=== PATIENT | male | born 1990 | race Two or more races ===

== ENCOUNTER 2016-06-10 20:48 | Emergency (ER) | payer OTHER ==
[~2016-06-10] VITALS: Ht 165.1 cm; Wt 78.0 kg
[~2016-06-10 20:48] MED LIST: ADDERALL; ANTIVERT25 MG PO; BACTRIM,SEPT1 TABLET PO; CLINDAMYCIN HC300 MG PO; CONCERTA18 MG PO; HYDROCODON-ACE1 EAC7 PO; KEFLEX500 MG PO; MOTRIN600 MG PO; MOTRIN800 MG PO; NAPROSYN500 MG PO; NAPROXEN500 M1 PO; NOHOMEMEDS; PERCOCET 5/31 TABLET PO; ROMYCIN3.5 GM RIGHT EYE; TORADOL10 MG PO; TRAMADOL HCL50 MG PO; VALIUM5 MG PO; ZOFRAN4 MG PO
[2016-06-10] MEDS ORDERED: BENADRYL50 MG PO (23:05)
[2016-06-10] MEDS ORDERED: PREDNISONE20 MG PO (23:05)
[2016-06-10] MEDS ORDERED: PEPCID20 MG PO (23:05)
[2016-06-11 00:01] VITALS: BP 127/60
== END 2016-06-11 00:04 | disposition home or self-care (01) ==
LOC: EME 20:48
DX: T78.40XA Allergy, unspecified, initial encounter (principal); F17.210 Nicotine dependence, cigarettes, uncomplicated
CPT/HCPCS: 99281; 99284; J7512

== ENCOUNTER 2016-12-15 00:53 | Emergency (ER) | payer OTHER ==
[~2016-12-15] VITALS: Ht 165.1 cm; Wt 79.3 kg
[~2016-12-15 00:53] MED LIST changes: +BENADRYL50 MG PO; +PEPCID20 MG PO; +PREDNISONE20 MG PO
[2016-12-15 01:49] LABS: MCHC 35.6 G/DL (30.0-36.0); MEAN PLAT.VOLUME 9.8 uM^3 (9.0-12.4); PLATELET COUNT 272 K/uL (156-360); RBC DIS.WIDTH-CV 11.7 % (11.8-14.6); RBC DIS.WIDTH-SD 37.8 % (39-53); RED BLOOD COUNT 4.71 M/uL (4.00-5.50); WHITE BLOOD COUNT 5.5 K/uL (4.1-10.2)
[2016-12-15 01:59] LABS: CHLORIDE 106 mEq/L (99-109); POTASSIUM 3.9 mEq/L (3.7-5.4); SODIUM 140 mEq/L (136-147)
[2016-12-15 02:01] LABS: GLUCOSE 104 mg/dL (70-99)
[2016-12-15 02:02] LABS: ANION GAP 7 MEQ/L (2-14)
[2016-12-15 02:03] LABS: TOTAL BILIRUBIN 0.3 mg/dL (0.0-1.0)
[2016-12-15 02:05] LABS: ALKALINE PHOSPHATASE 48 IU/L (3-129); GFR ESTIMATE (CALCULATED) > 59 mL/min/
[2016-12-15 02:06] LABS: UREA NITROGEN (BUN) 10 mg/dL (9-23)
[2016-12-15] MEDS ORDERED: PEPCID20 MG PO (02:16)
[2016-12-15] MEDS ORDERED: ZOFRAN4 MG PO (02:16)
[2016-12-15 02:34] VITALS: BP 111/68
== END 2016-12-15 02:35 | disposition home or self-care (01) ==
LOC: EME 00:53
PROVIDERS: Physician Assistant
DX: K92.2 Gastrointestinal hemorrhage, unspecified (principal); R11.2 Nausea with vomiting, unspecified; S60.222A Contusion of left hand, initial encounter; W23.0XXA Caught, crushed, jammed, or pinched between moving objects, initial encounter; Y99.0 Civilian activity done for income or pay
CPT/HCPCS: 73130; 80053; 85027; 99281; 99284

== ENCOUNTER 2017-01-28 14:54 | Emergency (ER) | payer OTHER ==
[~2017-01-28] VITALS: Ht 165.1 cm; Wt 78.5 kg
[2017-01-28] MEDS ORDERED: KEFLEX500 MG PO (16:49)
[2017-01-28 17:15] VITALS: BP 132/83
== END 2017-01-28 17:25 | disposition home or self-care (01) ==
LOC: EME 14:54
DX: L03.312 Cellulitis of back [any part except buttock and flank] (principal); F17.200 Nicotine dependence, unspecified, uncomplicated
CPT/HCPCS: 99281; 99283

== ENCOUNTER 2017-03-22 00:50 | Emergency (ER) | payer OTHER ==
[~2017-03-22] VITALS: Ht 165.1 cm; Wt 79.6 kg
[2017-03-22 01:29] LABS: HEMATOCRIT 40.3 % (38.0-50.0); MCHC 35.2 G/DL (30.0-36.0); MEAN PLAT.VOLUME 9.6 uM^3 (9.0-12.4); PLATELET COUNT 270 K/uL (156-360); RBC DIS.WIDTH-CV 11.8 % (11.8-14.6); RED BLOOD COUNT 4.58 M/uL (4.00-5.50); WHITE BLOOD COUNT 6.7 K/uL (4.1-10.2)
[2017-03-22 01:37] LABS: CHLORIDE 107 mEq/L (99-109); POTASSIUM 3.8 mEq/L (3.7-5.4); SODIUM 139 mEq/L (136-147)
[2017-03-22 01:39] LABS: GLUCOSE 126 mg/dL (70-99)
[2017-03-22 01:41] LABS: ANION GAP 7 MEQ/L (2-14); TOTAL BILIRUBIN 0.3 mg/dL (0.0-1.0)
[2017-03-22 01:42] LABS: ADD MIUA? YES; BILIRUBIN NEGATIVE; BLOOD NEGATIVE; COLOR YELLOW ((YELLOW)); GLUCOSE (STRIP) NEGATIVE; KETONES NEGATIVE; LEUKOCYTES NEGATIVE; NITRITE NEGATIVE; PROTEIN (STRIP) NEGATIVE; SPECIFIC GRAVITY 1.024 (1.000-1.030); UROBILINOGEN 0.2 MG/DL (0.2-1.0)
[2017-03-22 01:43] LABS: ALKALINE PHOSPHATASE 40 IU/L (3-129); GFR ESTIMATE (CALCULATED) > 59 mL/min/
[2017-03-22 01:44] LABS: UREA NITROGEN (BUN) 13 mg/dL (9-23)
[2017-03-22 01:46] LABS: LIPASE 33 U/L (1.0-51.0)
[2017-03-22 01:49] LABS: BACTERIA NONE SEEN /HPF; EPITHELIAL CELLS NONE SEEN /HPF; MUCUS TRACE /LPF; UCUL ADDED? NO; WHITE BLOOD CELLS 0-5 /HPF (0-5)
[2017-03-22] MEDS ORDERED: ZOFRAN ODT4 MG PO (02:11)
[2017-03-22 02:15] VITALS: BP 133/80
== END 2017-03-22 02:16 | disposition home or self-care (01) ==
LOC: EME 00:50
PROVIDERS: Physician Assistant
DX: R11.2 Nausea with vomiting, unspecified (principal); S63.91XA Sprain of unspecified part of right wrist and hand, initial encounter; W22.09XA Striking against other stationary object, initial encounter; F17.200 Nicotine dependence, unspecified, uncomplicated
CPT/HCPCS: 73130; 80053; 81003; 83690; 85027

== ENCOUNTER 2017-04-25 10:52 | Emergency (ER) | payer OTHER ==
[~2017-04-25] VITALS: Ht 165.1 cm; Wt 79.2 kg
[~2017-04-25 10:52] MED LIST changes: +ZOFRAN ODT4 MG PO
[2017-04-25 11:05] VITALS: BP 137/84
== END 2017-04-25 12:39 | disposition home or self-care (01) ==
LOC: EME 10:52
PROC: 2W3JX1Z Immobilization of Right Finger using Splint (ICD-10-PCS; principal; 2017-04-25)
DX: S63.612A Unspecified sprain of right middle finger, initial encounter (principal); S60.031A Contusion of right middle finger without damage to nail, initial encounter; W22.09XA Striking against other stationary object, initial encounter
CPT/HCPCS: 73140; 99281; 99284

== ENCOUNTER 2017-06-10 20:15 | Emergency (ER) | payer OTHER ==
[~2017-06-10] VITALS: Ht 165.1 cm; Wt 79.9 kg
[2017-06-11 00:25] VITALS: BP 137/86
== END 2017-06-11 00:38 | disposition home or self-care (01) ==
LOC: EME 20:15
PROC: 3E0T3BZ Introduction of Anesthetic Agent into Peripheral Nerves and Plexi, Percutaneous Approach (ICD-10-PCS; principal; 2017-06-11)
DX: K08.89 Other specified disorders of teeth and supporting structures (principal); Z88.8 Allergy status to other drugs, medicaments and biological substances
CPT/HCPCS: 99281; 99283

== ENCOUNTER 2017-06-17 16:36 | Emergency (ER) | payer OTHER ==
[~2017-06-17] VITALS: Ht 165.1 cm; Wt 79.3 kg
[2017-06-17] MEDS ORDERED: TAMIFLU75 MG PO (18:26)
[2017-06-17 19:03] VITALS: BP 129/77
== END 2017-06-17 19:05 | disposition home or self-care (01) ==
LOC: EME 16:36
PROVIDERS: Physician Assistant
DX: J10.1 Influenza due to other identified influenza virus with other respiratory manifestations (principal); F17.200 Nicotine dependence, unspecified, uncomplicated
CPT/HCPCS: 87502; 99281; 99284

== ENCOUNTER 2017-06-20 17:40 | Emergency (ER) | payer OTHER ==
[~2017-06-20] VITALS: Ht 165.1 cm; Wt 78.0 kg
[~2017-06-20 17:40] MED LIST changes: +TAMIFLU75 MG PO
[2017-06-20] MEDS ORDERED: ERYTHROMYC1 APPLICAT LEFT EYE (21:11)
[2017-06-20 21:22] VITALS: BP 125/67
== END 2017-06-20 21:23 | disposition home or self-care (01) ==
LOC: EME 17:40
DX: H10.9 Unspecified conjunctivitis (principal); R22.0 Localized swelling, mass and lump, head; F17.200 Nicotine dependence, unspecified, uncomplicated; Z88.8 Allergy status to other drugs, medicaments and biological substances
CPT/HCPCS: 99281; 99284

== ENCOUNTER 2017-07-12 19:47 | Emergency (ER) | payer OTHER ==
[~2017-07-12] VITALS: Ht 165.1 cm; Wt 80.6 kg
[~2017-07-12 19:47] MED LIST changes: +ERYTHROMYC1 APPLICAT LEFT EYE
[2017-07-12 21:59] VITALS: BP 127/70
== END 2017-07-12 22:00 | disposition home or self-care (01) ==
LOC: EME 19:47
DX: B34.9 Viral infection, unspecified (principal); J02.8 Acute pharyngitis due to other specified organisms; Z88.8 Allergy status to other drugs, medicaments and biological substances
CPT/HCPCS: 71046; 87651 90; 99281; 99283

== ENCOUNTER 2017-07-27 19:40 | Emergency (ER) | payer OTHER ==
[~2017-07-27] VITALS: Ht 165.1 cm; Wt 81.2 kg
[2017-07-27 19:41] VITALS: BP 146/89
[2017-07-27] MEDS ORDERED: MOTRIN600 MG PO (21:13)
== END 2017-07-27 21:19 | disposition home or self-care (01) ==
LOC: EME 19:40
DX: S86.912A Strain of unspecified muscle(s) and tendon(s) at lower leg level, left leg, initial encounter (principal); W22.8XXA Striking against or struck by other objects, initial encounter
CPT/HCPCS: 73564; 99281; 99284

== ENCOUNTER 2017-09-19 02:50 | Emergency (ER) | payer OTHER ==
[~2017-09-19] VITALS: Ht 165.1 cm; Wt 77.7 kg
[2017-09-19 04:41] VITALS: BP 142/73
== END 2017-09-19 04:42 | disposition home or self-care (01) ==
LOC: EME 02:50
DX: H10.211 Acute toxic conjunctivitis, right eye (principal); F17.200 Nicotine dependence, unspecified, uncomplicated
CPT/HCPCS: 99281; 99284

== ENCOUNTER 2017-11-28 17:01 | Emergency (ER) | payer OTHER ==
[~2017-11-28] VITALS: Ht 165.1 cm; Wt 77.2 kg
[2017-11-28] MEDS ORDERED: INDOCIN50 MG PO (17:38)
[2017-11-28 18:05] VITALS: BP 110/72
== END 2017-11-28 18:14 | disposition home or self-care (01) ==
LOC: EME 17:01
DX: M75.21 Bicipital tendinitis, right shoulder (principal); Z88.8 Allergy status to other drugs, medicaments and biological substances
CPT/HCPCS: 99281; 99283